=== PATIENT | male | born 1995 | race Two or more races ===

== ENCOUNTER → 2023-06-13 | Emergency (ER) | payer OTHER ==
[~2023-06-13] VITALS: Ht 175.3 cm; Wt 79.4 kg
[~2023-06-13] MED LIST: HUMALOG100 UNIT/2 SQ
[2023-06-13 16:52] LABS: HEMATOCRIT 47.1 % (39.0-48.0); HEMOGLOBIN 15.8 g/dL (13-16.00); MEAN CELL VOLUME 92.3 fL (80.0-100.00); MEAN CORPUSCULAR HEMOGLOBIN 30.9 pg (27.00-32.0); MEAN CORPUSCULAR HGB CONC 33.5 g/dl (32.0-36.0); PLATELET COUNT 273 K/uL (150-450); RED BLOOD COUNT 5.11 M/uL (4.00-6.00); RED CELL DISTRIBUTION WIDTH 13.9 % (11.5-14.5)
[2023-06-13 17:16] LABS: ALBUMIN 4.1 gm/dL (3.4-5.0); BILIRUBIN TOTAL 0.37 mg/dL (0.3-1.2); CALCIUM 9.4 mg/dL (8.5-10.1); CREATININE SERUM 1.04 mg/dL (0.70-1.30); GFR 84.43; GLOBULINA 3.1 G/DL (2.4-3.5); POTASSIUM 4.71 mEq/L (3.5-5.1); TOTAL PROTEIN 7.2 gm/dL (6.4-8.2)
== END | disposition home or self-care (01) ==
LOC: ER 14:18
PROVIDERS: General Practice
DX: K52.89 Other specified noninfective gastroenteritis and colitis (principal); R19.7 Diarrhea, unspecified; Z88.8 Allergy status to other drugs, medicaments and biological substances; Z20.822 Contact with and (suspected) exposure to COVID-19

== ENCOUNTER 2023-08-06 10:13 | Emergency (ER) | payer OTHER ==
[~2023-08-06] VITALS: Ht 175.3 cm; Wt 74.8 kg
[2023-08-06] MEDS ORDERED: NOVOLOG100 UNIT/1 (10:21)
[2023-08-06] MEDS ORDERED: 0.9 % SODIUM CHLORIDE 1,000 ML IV STA (11:25)
[2023-08-06 11:54] LABS: HEMATOCRIT 45.5 % (39.0-48.0); HEMOGLOBIN 15.4 g/dL (13-16.00); MEAN CELL VOLUME 91.9 fL (80.0-100.00); MEAN CORPUSCULAR HGB CONC 33.8 g/dl (32.0-36.0); PLATELET COUNT 274 K/uL (150-450); RED BLOOD COUNT 4.95 M/uL (4.00-6.00)
[2023-08-06 12:01] LABS: PH,URINE 5.5 (5.0-8.0); URINE APPEARANCE Clear; URINE BILIRRUBIN Negative (NEGATIVE); URINE BLOOD Negative; URINE COLOR Yellow; URINE LEUKOCYTE Negative; URINE NITRATE Negative; URINE PROTEIN Negative (NEGATIVE); URINE UROBILINOGEN 0.2 E.U./dl
[2023-08-06 12:03] LABS: URINE EPITHELIAL CELLS 3.5 uL (0.0-38.8); URINE WBC 8.7 uL (0.0-23.2)
[2023-08-06 12:04] LABS: URINE GLUCOSE >=1000 MG/DL (NEGATIVE); URINE RBC 1.1 uL (0.0-20.8)
[2023-08-06 12:23] LABS: ALKALINE PHOSPHATASE 84 U/L (50-136); ALT/SGPT 26 U/L (12-78); ANION GAP 11 (10.0-20.0); AST/SGOT 13 U/L (15-37); BILIRUBIN TOTAL 0.16 mg/dL (0.3-1.2); BILIRUBIN,CONJUGATED < 0.10 mg/dL (0.0-0.2); BILIRUBIN,UNCONJUGATED 0.06 mg/dL (0.0-0.6); BLOOD UREA NITROGEN 16 mg/dL (7-18); BUN CREA RATIO 17 (7.0-25.0); CALCIUM 9.3 mg/dL (8.5-10.1); CARBON DIOXIDE 27 mEq/L (21-32); CHLORIDE 102 mmol/L (98-107); CREATININE SERUM 0.94 mg/dL (0.70-1.30); GFR 94.88; OSMOLALITY SERUM 286 MOSM/KG (275-295); POTASSIUM 4.11 mEq/L (3.5-5.1); SODIUM 136 mmol/L (136-145); TOTAL PROTEIN 7.6 gm/dL (6.4-8.2)
[2023-08-06 12:27] LABS: GLUCOSE FASTING 330 mg/dL (65-100)
[2023-08-06 12:37] LABS: ABG PH 7.306 (7.35-7.45); ABG pCO2 56.4 mmHg (35-45)
[2023-08-06 12:38] LABS: ABG PO2 52.5 mmHg (80-100); BASE EXCESS 0 mmol/l; BICARBONATE 27.5 mmol/l (23-25); SaO2 52.5 %; Tco2 29.2 mmol/l; allen test SATISFACTORY; o2 21 %; puncture site RADIAL RIGHT
[2023-08-06] MEDS ORDERED: INSULIN REGULAR, HUMAN 1,000 UNIT/10 ML UNITS SUBCUTANEO STA (14:59)
== END 2023-08-06 16:12 | disposition home or self-care (01) ==
LOC: ER 10:13
PROVIDERS: General Practice
DX: E10.10 Type 1 diabetes mellitus with ketoacidosis without coma (principal); Z79.4 Long term (current) use of insulin

== ENCOUNTER 2024-04-26 03:37 | Emergency (ER) | payer OTHER ==
[~2024-04-26] VITALS: Ht 172.7 cm; Wt 86.2 kg
[~2024-04-26 03:37] MED LIST changes: +NOVOLOG100 UNIT/1
[2024-04-26] MEDS ORDERED: KETOROLAC TROMETHAMINE 30 MG VIAL IV STA (04:48)
[2024-04-26] MEDS ORDERED: FAMOtidine 20 MG TABLET PO STA (04:49)
[2024-04-26] MEDS ORDERED: ONDANSETRON HCL 2 MG/ML VIAL IV STA (04:49)
[2024-04-26] MEDS ORDERED: 0.9 % SODIUM CHLORIDE 1,000 ML IV ONE (05:00)
[2024-04-26 06:45] LABS: CREATININE SERUM 1.04 mg/dL (0.70-1.30); GFR 83.85; POTASSIUM 3.79 mEq/L (3.5-5.1)
[2024-04-26 06:52] LABS: HEMATOCRIT 42.7 % (39.0-48.0); HEMOGLOBIN 14.5 g/dL (13-16.00); MEAN CELL VOLUME 92.2 fL (80.0-100.00); MEAN CORPUSCULAR HEMOGLOBIN 31.4 pg (27.00-32.0); PLATELET COUNT 267 K/uL (150-450); RED BLOOD COUNT 4.63 M/uL (4.00-6.00)
[2024-04-26] MEDS ORDERED: ZOFRAN8 MG PO (07:23)
[2024-04-28] MEDS ORDERED: PERCOCET 5-3251 EACH PO (07:43)
[2024-04-28] MEDS ORDERED: CORTISPORIN EAR10 M1 OTIC ×2 (07:44)
== END 2024-04-26 07:49 ==
LOC: ER 03:39
PROVIDERS: General Practice
DX: R11.10 Vomiting, unspecified (principal); K08.89 Other specified disorders of teeth and supporting structures; Z88.8 Allergy status to other drugs, medicaments and biological substances
CPT/HCPCS: 36415; 96365; 96366; 99282; J1885; J2405

== ENCOUNTER → 2024-04-27 | Emergency (ER) | payer OTHER ==
[~2024-04-27] MED LIST changes: +CORTISPORIN EAR10 M1 OTIC; +PERCOCET 5-3251 EACH PO; +ZOFRAN8 MG PO
== END | disposition home or self-care (01) ==
LOC: ER 02:05
DX: H66.92 Otitis media, unspecified, left ear (principal); Z88.8 Allergy status to other drugs, medicaments and biological substances; E11.65 Type 2 diabetes mellitus with hyperglycemia; Z79.4 Long term (current) use of insulin

== ENCOUNTER → 2024-04-27 | Emergency (ER) | payer OTHER ==
[~2024-04-27] VITALS: Ht 175.3 cm; Wt 77.1 kg
[~2024-04-27] MED LIST changes: +0.9 % SODIUM CHLORIDE 500 ML IV ONE; +CEFTRIAXONE SODIUM 1,000 MG VIAL IV ONE; +CEFTRIAXONE SODIUM 1,000 MG VIAL IV STA; +INSULIN REGULAR, HUMAN 1,000 UNIT/10 ML UNITS IV STA; +KETOROLAC TROMETHAMINE 30 MG VIAL IV STA; +MEPERIDINE HCL/PF 50 MG/ML VIAL IM ONE; +NEOMYCIN/POLYMYXIN B/HYDROCORT 20 DR/ML BOTTLE OT STA; +OxyCODONE HCL/APAP UD (PERCOCET) PO STA
[2024-04-28 00:28] LABS: HEMATOCRIT 46.1 % (39.0-48.0); HEMOGLOBIN 15.7 g/dL (13-16.00); MEAN CELL VOLUME 92.7 fL (80.0-100.00); MEAN CORPUSCULAR HEMOGLOBIN 31.6 pg (27.00-32.0); MEAN CORPUSCULAR HGB CONC 34.1 g/dl (32.0-36.0); PLATELET COUNT 307 K/uL (150-450); RED BLOOD COUNT 4.97 M/uL (4.00-6.00); RED CELL DISTRIBUTION WIDTH 13.2 % (11.5-14.5)
[2024-04-28 05:03] LABS: CALCIUM 9.2 mg/dL (8.5-10.1); CREATININE SERUM 1.13 mg/dL (0.70-1.30); GFR 76.19; POTASSIUM 5.16 mEq/L (3.5-5.1)
[2024-04-28 07:45] LABS: PH,URINE 5.5 (5.0-8.0); URINE APPEARANCE Clear; URINE BILIRRUBIN Negative (NEGATIVE); URINE BLOOD Negative; URINE COLOR Yellow; URINE LEUKOCYTE Negative; URINE NITRATE Negative; URINE PROTEIN Negative (NEGATIVE); URINE UROBILINOGEN 0.2 E.U./dl
[2024-04-28 07:48] VITALS: BP 117/74; O2SAT 98
[2024-04-28 07:49] LABS: URINE BACTERIA 25.1 uL (0.0-1933); URINE EPITHELIAL CELLS 25.2 uL (0.0-38.8); URINE WBC 9.5 uL (0.0-23.2)
[2024-04-28 08:36] LABS: URINE GLUCOSE >=1000 MG/DL (NEGATIVE); URINE KETONE 40 (NEGATIVE); URINE RBC 0.9 uL (0.0-20.8)
== END | disposition home or self-care (01) ==
LOC: ER 21:46
PROVIDERS: Emergency Medicine; General Practice
DX: H66.92 Otitis media, unspecified, left ear (principal); Z88.8 Allergy status to other drugs, medicaments and biological substances; E11.65 Type 2 diabetes mellitus with hyperglycemia; Z79.4 Long term (current) use of insulin
CPT/HCPCS: 36415; 70450; 96365; 96366; 96372; 99284; J0696; J1815; J1885; J3490; J7042

== ENCOUNTER 2024-10-21 09:20 | Emergency (ER) | payer OTHER ==
[~2024-10-21] VITALS: Ht 175.3 cm; Wt 74.8 kg
[~2024-10-21 09:20] MED LIST changes: -0.9 % SODIUM CHLORIDE 500 ML IV ONE; -CEFTRIAXONE SODIUM 1,000 MG VIAL IV ONE; -CEFTRIAXONE SODIUM 1,000 MG VIAL IV STA; -INSULIN REGULAR, HUMAN 1,000 UNIT/10 ML UNITS IV STA; -KETOROLAC TROMETHAMINE 30 MG VIAL IV STA; -MEPERIDINE HCL/PF 50 MG/ML VIAL IM ONE; -NEOMYCIN/POLYMYXIN B/HYDROCORT 20 DR/ML BOTTLE OT STA; -OxyCODONE HCL/APAP UD (PERCOCET) PO STA
[2024-10-21] MEDS ORDERED: 0.9 % SODIUM CHLORIDE 1,000 ML IV STA (10:13)
[2024-10-21] MEDS ORDERED: ONDANSETRON HCL 2 MG/ML VIAL IV STA (10:13)
[2024-10-21] MEDS ORDERED: FAMOTIDINE/PF 20 MG in 0.9 % SODIUM CHLORIDE 8 ML IV PUSH STA (10:14)
[2024-10-21] MEDS ORDERED: ONDANSETRON HCL 2 MG/ML VIAL ONE (10:33)
[2024-10-21] MEDS ORDERED: FAMOTIDINE/PF 20 MG/2 ML VIAL ONE (10:34)
[2024-10-21 11:28] LABS: HEMATOCRIT 49.2 % (39.0-48.0); HEMOGLOBIN 16.1 g/dL (13-16.00); MEAN CELL VOLUME 91.3 fL (80.0-100.00); MEAN CORPUSCULAR HEMOGLOBIN 29.9 pg (27.00-32.0); MEAN CORPUSCULAR HGB CONC 32.7 g/dl (32.0-36.0); PLATELET COUNT 316 K/uL (150-450); RED BLOOD COUNT 5.39 M/uL (4.00-6.00)
[2024-10-21 12:21] LABS: CALCIUM 9.1 mg/dL (8.5-10.1); CREATININE SERUM 1.12 mg/dL (0.70-1.30); GFR 76.98; POTASSIUM 5.54 mEq/L (3.5-5.1)
[2024-10-21] MEDS ORDERED: INSULIN REGULAR, HUMAN 1,000 UNIT/10 ML UNITS IV ONE (13:15)
[2024-10-21 13:21] LABS: URINE APPEARANCE Clear; URINE BILIRRUBIN Negative (NEGATIVE); URINE BLOOD Negative; URINE COLOR Yellow; URINE LEUKOCYTE Negative; URINE NITRATE Negative; URINE PROTEIN Negative (NEGATIVE); URINE UROBILINOGEN 0.2 E.U./dl
[2024-10-21 13:26] LABS: URINE BACTERIA 12.2 uL (0.0-1933)
[2024-10-21 13:56] LABS: URINE CAST 0.14 uL (0.0-1.40); URINE EPITHELIAL CELLS 0.3 uL (0.0-38.8); URINE GLUCOSE >=1000 MG/DL (NEGATIVE); URINE KETONE >=160 (NEGATIVE); URINE RBC 0.4 uL (0.0-20.8); URINE WBC 1.1 uL (0.0-23.2)
== END 2024-10-21 16:40 | disposition home or self-care (01) ==
LOC: ER 09:21
PROVIDERS: Emergency Medicine
DX: K52.89 Other specified noninfective gastroenteritis and colitis (principal); Z88.8 Allergy status to other drugs, medicaments and biological substances; E11.65 Type 2 diabetes mellitus with hyperglycemia; Z79.4 Long term (current) use of insulin
CPT/HCPCS: 36415; 96365; 96366; 99282; J1815; J2405; J3490; J7030

== ENCOUNTER 2024-10-25 06:06 | Emergency (ER) | payer OTHER ==
[~2024-10-25] VITALS: Ht 175.3 cm; Wt 77.1 kg
[2024-10-25] MEDS ORDERED: HYOSCYAMINE SULFATE 0.125 MG TAB.SUBL SL STA (07:40)
[2024-10-25] MEDS ORDERED: PROMETHAZINE HCL 50 MG/ML AMPUL IM STA (07:41)
[2024-10-25] MEDS ORDERED: FAMOTIDINE/PF 20 MG/2 ML VIAL IV PUSH STA (07:41)
[2024-10-25] MEDS ORDERED: LACTOBACILLUS ACIDOPHILUS 1 CAP CAP PO STA (07:41)
[2024-10-25] MEDS ORDERED: PROMETHAZINE HCL 50 MG/ML AMPUL IM ONE (07:45)
[2024-10-25] MEDS ORDERED: 0.9 % SODIUM CHLORIDE 1,000 ML IV ONE (07:45)
[2024-10-25] MEDS ORDERED: LACTOBACILLUS ACIDOPHILUS 1 CAP CAP PO ONE (07:46)
[2024-10-25] MEDS ORDERED: HYOSCYAMINE SULFATE 0.125 MG TAB.SUBL ONE (07:46)
[2024-10-25] MEDS ORDERED: BARIUM SULFATE 450 ML ORAL.SUSP PO ONE (07:47)
[2024-10-25 08:37] LABS: HEMATOCRIT 44.7 % (39.0-48.0); HEMOGLOBIN 14.7 g/dL (13-16.00); MEAN CELL VOLUME 90.1 fL (80.0-100.00); MEAN CORPUSCULAR HEMOGLOBIN 29.6 pg (27.00-32.0); MEAN CORPUSCULAR HGB CONC 32.9 g/dl (32.0-36.0); PLATELET COUNT 291 K/uL (150-450); RED BLOOD COUNT 4.96 M/uL (4.00-6.00); RED CELL DISTRIBUTION WIDTH 13.5 % (11.5-14.5)
[2024-10-25 09:01] LABS: PH,URINE 6.5 (5.0-8.0); URINE APPEARANCE Clear; URINE BILIRRUBIN Negative (NEGATIVE); URINE BLOOD Negative; URINE COLOR Yellow; URINE LEUKOCYTE Negative; URINE NITRATE Negative; URINE PROTEIN Negative (NEGATIVE)
[2024-10-25 09:04] LABS: URINE BACTERIA 35.4 uL (0.0-1933); URINE EPITHELIAL CELLS 1.4 uL (0.0-38.8); URINE WBC 4.8 uL (0.0-23.2)
[2024-10-25 09:08] LABS: ALBUMIN 3.2 gm/dL (3.4-5.0); BILIRUBIN TOTAL 0.42 mg/dL (0.3-1.2); CALCIUM 8.8 mg/dL (8.5-10.1); CREATININE SERUM 0.97 mg/dL (0.70-1.30); GFR 90.87; GLOBULINA 3.4 G/DL (2.4-3.5); POTASSIUM 5.08 mEq/L (3.5-5.1); TOTAL PROTEIN 6.6 gm/dL (6.4-8.2)
[2024-10-25 09:20] LABS: URINE GLUCOSE >=1000 MG/DL (NEGATIVE); URINE KETONE 40 (NEGATIVE); URINE RBC 1.4 uL (0.0-20.8)
[2024-10-25 10:51] LABS: ABG PH 7.359 (7.35-7.45); BASE EXCESS -15.2 mmol/l; BICARBONATE 6.7 mmol/l (23-25); SaO2 79.4 %; Tco2 7.1 mmol/l
[2024-10-25 10:59] LABS: ABG PO2 47.9 mmHg (80-100); ABG pCO2 12.2 mmHg (35-45); allen test SATISFACTORY; mode ROOM AIR; o2 21 %; puncture site RADIAL RIGHT
[2024-10-25] MEDS ORDERED: MORPHINE SULFATE 4 MG/ML VIAL IV ONE (14:00)
[2024-10-25] MEDS ORDERED: PEPCID AC20 MG PO (17:10)
[2024-10-25] MEDS ORDERED: LEVSIN/SL0.125 MG SL (17:10)
[2024-10-25] MEDS ORDERED: ONDANSETRON ODT8 MG PO (17:10)
[2024-10-25] MEDS ORDERED: KETOROLAC TROMETHAMINE 30 MG VIAL ONE (17:13)
[2024-10-25] MEDS ORDERED: KETOROLAC TROMETHAMINE 30 MG VIAL IV ONE (17:15)
[2024-10-25 18:53] LABS: ABG PO2 100.5 mmHg (80-100); ABG pCO2 38.6 mmHg (35-45); BASE EXCESS -4.5 mmol/l; BICARBONATE 20.7 mmol/l (23-25); SaO2 97.2 %; Tco2 21.9 mmol/l; o2 21 %
[2024-10-25 18:54] LABS: allen test SATISFACTORY; mode ROOM AIR; puncture site RADIAL LEFT
[2024-10-25 18:55] LABS: ABG PH 7.347 (7.35-7.45)
== END 2024-10-25 17:33 | disposition home or self-care (01) ==
LOC: ER 06:06
PROVIDERS: Emergency Medicine; General Practice
DX: I88.0 Nonspecific mesenteric lymphadenitis (principal); Z88.8 Allergy status to other drugs, medicaments and biological substances